=== PATIENT | female | born 1940 | race Caucasian/White ===

== ENCOUNTER → 2016-09-07 | Outpatient (CLI) | payer OTHER ==
[~2016-09-07] MED LIST: AMLO2.5T PO; ASPCH81X PO; BACL10TA PO; BUPR-79 PO; CALC500C70 PO; CYAN100020 PO; FLUT27.5 NAE; FLUT27.53 NAE; GLIP-199 PO; HYDR-4383 PO; HYDR12.55 PO; LEVO200T6 PO; LEVO25TA5 PO; LOSA50TA6 PO; MULT-506 PO; OPTIRAY 320 IV PRN; SYN75 PO; VITAMIN B12 PO; ZNTT/150 PO; ZOLP10TA PO
--- NOTE | 2016-09-07 12:43 | DIAGNOSTIC IMAGING REPORT ---
CT OF THE CHEST WITH IV CONTRAST CLINICAL HISTORY: Multiple pulmonary nodules. COMPARISON STUDY: CT of the abdomen and pelvis February 21, 2016. TECHNIQUE: Following IV administration of 93 mL of Optiray-320, helical axial images of the chest were obtained. Images were viewed in the axial, sagittal and coronal planes. IV contrast was administered without complication. CT DOSE: 880.68 mGy.cm FINDINGS: No enlarged axillary, mediastinal or hilar lymph nodes are present. The size of the heart is normal. There is no pericardial effusion. The central airways are patent. There is no consolidation. Nodules within the lower lungs are unchanged since CT of February 21, 2016 and include a 5 mm left lower lobe nodule shown image 213 of 326. A few additional pulmonary nodules are noted, including a 5 mm left lower lobe nodule shown image 169. The central airways are patent. Postsurgical findings of the stomach are noted. There is fatty infiltration of the liver. IMPRESSION: Several pulmonary nodules measuring up to 5 mm. The lower lung nodules shown on CT of February 21, 2016 are unchanged. These nodules are low suspicion but a follow-up chest CT in one year to ensure stability is recommended. Electronically signed by: Arthur Markham M.D. 09/07/2016 12:41 PM Dictated Date/Time: 09/07/2016 12:34 PM
== END | disposition home or self-care (01) ==
LOC: C.CTS 11:45
PROVIDERS: ATTEND Nurse Practitioner Family
DX: R91.8 Other nonspecific abnormal finding of lung field (principal)

== ENCOUNTER → 2016-12-16 | Outpatient (CLI) | payer OTHER ==
[2016-12-16 13:15] LABS: ISTAT CREATININE 0.7 mg/dl (0.6-1.3); ISTAT HEMOGLOBIN 13.3 g/dl (12.0-16.0); ISTAT IONIZED CALCIUM 1.15 mmol/l (1.12-1.32)
--- NOTE | 2016-12-16 14:45 | DIAGNOSTIC IMAGING REPORT ---
CT ABD/PELVIS IV AND ORAL CONT CLINICAL HISTORY: Lower abdominal pain COMPARISON STUDY: 02/21/2016 TECHNIQUE: Following the IV administration of 117 mL of Optiray-320, CT scan of the abdomen and pelvis was performed from the lung bases to the proximal femurs. Images are reviewed in the axial, sagittal, and coronal planes. IV contrast was administered without complication. CT DOSE: 1558.11 mGy.cm FINDINGS: Lower chest: There is mild subpleural septal thickening. There is a 4 mm solid left lower lobe pulmonary nodule as visualized in image #[id number]. This remains unchanged from the chest CT dated 09/07/2016 Liver: There is mild hepatic steatosis. No focal masses are visualized. Gallbladder: Unremarkable. Spleen: Normal in size and attenuation. Pancreas: Unremarkable. Adrenal glands: Unremarkable. Kidneys: There is symmetric renal cortical enhancement. The kidneys are normal in size without hydronephrosis. Bowel: There are no transition zones indicate bowel obstruction. There is no evidence of acute diverticulitis. There are no findings to indicate acute appendicitis. Peritoneum: There is no intraperitoneal free air or abdominal ascites. There are multiple fat-containing ventral hernias. Vasculature: The abdominal aorta is normal in course and caliber. Adenopathy: None. Pelvic viscera: The uterus is surgically absent. Skeletal structures: No destructive osseous lesions are seen. IMPRESSION: 1. No evidence of bowel obstruction. No evidence of free air 2. No acute inflammatory changes 3. Postoperative changes involving the stomach 4. Stable fat-containing ventral hernias Electronically signed by: Stevie Cruz M.D. 12/16/2016 2:42 PM Dictated Date/Time: 12/16/2016 2:36 PM
== END | disposition home or self-care (01) ==
LOC: C.CTS 10:45
PROVIDERS: ATTEND Nurse Practitioner Family
DX: R10.30 Lower abdominal pain, unspecified (principal)

== ENCOUNTER → 2016-12-23 | Outpatient (CLI) | payer OTHER ==
[~2016-12-23] MED LIST changes: -OPTIRAY 320 IV PRN
--- NOTE | 2016-12-23 10:48 | DIAGNOSTIC IMAGING REPORT ---
RIGHT HIP UNILATERAL 2 VIEWS, LEFT HIP UNILATERAL 2 VIEWS CLINICAL HISTORY: Bilateral groin pain. COMPARISON STUDY: None. FINDINGS: No fracture or dislocation within the right or left hip. The visualized pelvic bones are intact. Cartilage spaces are maintained for age. Linear ossific density adjacent to the superolateral aspect of the left acetabulum may be due to an old injury or chronic change. Soft tissues are unremarkable. IMPRESSION: No acute fracture or dislocation within the right or left hip. Electronically signed by: Chaz Carlson M.D. 12/23/2016 10:46 AM Dictated Date/Time: 12/23/2016 10:45 AM
== END | disposition home or self-care (01) ==
LOC: C.RAD 10:10
PROVIDERS: ATTEND Nurse Practitioner Family
DX: R10.30 Lower abdominal pain, unspecified (principal); M25.551 Pain in right hip

== ENCOUNTER → 2017-01-12 | Outpatient (CLI) | payer OTHER ==
--- NOTE | 2017-01-12 09:17 | DIAGNOSTIC IMAGING REPORT ---
LEFT KNEE 1 OR 2 VIEWS ROUTINE CLINICAL HISTORY: LEFT KNEE PAIN COMPARISON: None. DISCUSSION: There is chondrocalcinosis. There is mild medial joint compartment narrowing. There are medial lateral joint compartment spurs. There are advanced arthritic changes the patellofemoral joint with dorsal patellar spurs. No acute fractures are visualized. IMPRESSION: 1. Chondrocalcinosis and 3 compartment osteoarthritic change 2. No acute fractures. Electronically signed by: Stevie Cruz M.D. 01/12/2017 9:16 AM Dictated Date/Time: 01/12/2017 9:15 AM
== END | disposition home or self-care (01) ==
LOC: C.RAD1850 09:03
PROVIDERS: ATTEND Family Medicine
DX: M25.562 Pain in left knee (principal); M11.262 Other chondrocalcinosis, left knee

== ENCOUNTER 2017-02-12 09:22 | Emergency (ER) | payer OTHER ==
[~2017-02-12] VITALS: Ht 157.5 cm; Wt 102.1 kg
[~2017-02-12 09:22] MED LIST changes: -BACL10TA PO; -CYAN100020 PO; -FLUT27.53 NAE; -SYN75 PO
[2017-02-12 09:30] VITALS: Ht 157.5 cm; Wt 102.1 kg
--- NOTE | 2017-02-12 09:54 | EMERGENCY ROOM VISIT NOTE ---
History First contact with patient: 09:41 Chief Complaint: NECK PAIN Stated Complaint: NECK PAIN RADIATING INTO UPPER BACK, "OUT OF IT" History of Present Illness The patient is a 76 year old female who presents to the Emergency Room with complaints of neck pain for around 5 days. Pain is moving around bilateral back and neck pain. Started in her neck last night although she is very confused about the timing of this. She was seen in [facility] by Sofiya Montiel 2 days previously and was prescribed baclofen but she is unsure whether this has been helping. She took muscle relaxers and pain medication. She is unsure what she was doing when the pain started but reports no trauma. Denies any fevers, chills, weight loss, trauma. The patient presents a very confused history and changes her story multiple times. She is orientated x3. After speaking to the patient I spoke to her daughter who was elsewhere in the ER with her son (as another patient). She reports her mother has altered mental status. She is not usually like this. Confirms story of neck pain for the last 5 days. She thinks her mother may have took too many pain medications yesterday. Review of Systems See HPI for pertinent positives & negatives. A total of 10 systems reviewed and were otherwise negative. Past Medical/Surgical History Medical Problems: (1) Diabetes (2) Hypertension (3) Hypothyroidism Family History Cancer Diabetes mellitus Hypertension Social History Smoking Status: Never Smoker Smokeless Tobacco Use: No Alcohol Use: none Marital Status: Housing Status: lives with family (2 daughters and son) Occupation Status: retired Current/Historical Medications Scheduled Amlodipine (Norvasc), 2.5 MG PO QAM Aspirin (Aspirin Chewable), 81 MG PO QAM Baclofen (Lioresal), 10 MG PO TID Bupropion (Wellbutrin Sr), 150 MG PO BID Calcium/Vitamin D (Os-Brice 500 Plus D), 1 TAB PO QAM Cyanocobalamin (Vitamin B12), 2,500 MCG PO QAM Fluticasone Furoate (Flonase Sensimist), 2 SPRAYS HARPREET QPM Glipizide (Glipizide Er), 1 TAB PO BID Hydrochlorothiazide (Hydrochlorothiazide), 1 TAB PO QAM Levothyroxine Sodium (Levothyroxine Sodium), 1 TAB PO QPM Levothyroxine Sodium (Synthroid), 75 MCG PO QAM Losartan Potassium (Cozaar), 50 MG PO QAM Multivitamin (Multivitamin), 1 TAB PO QAM Ranitidine (Zantac), 150 MG PO QAM Zolpidem Tartrate (Ambien), 10 MG PO HS Scheduled PRN Hydrocodone/Acetaminophen ([place] 10/325 Tab), 1 TAB PO Q6H PRN for Pain Allergies Coded Allergies: No Known Allergies (Verified , `, 02/12/17) Physical Exam Vital Signs Date Time Temp Pulse Resp B/P (MAP) Pulse Ox O2 Delivery O2 Flow Rate FiO2 02/12/17 17:25 37.2 79 18 167/80 96 02/12/17 14:40 70 18 162/80 92 Room Air 02/12/17 12:52 62 171/87 94 Room Air 02/12/17 11:36 73 20 166/77 96 Room Air 02/12/17 09:30 37.2 78 20 154/76 95 Room Air Physical Exam VITAL SIGNS: were reviewed as above GENERAL: moderate distress from her neck pain, constantly moving her head from side to side and holding the back of her head SKIN: Warm dry and pink, no rashes HEAD: Normocephalic and atraumatic EYES: extraocular muscles intact, pupils equal and reactive to light OROPHARYNX: non erythematous, clear and moist NECK: Supple, her pain is reproducible on the right side of her neck around C7-8 LUNGS: clear to auscultation, no accessory muscle use HEART: Regular rate and rhythm, heart sounds 1+2, no murmurs ABDOMEN: Soft and nontender, bowel sounds normal BACK: no CVA tenderness, no central spinal tenderness EXTREMITIES: Warm and well perfused, no calf tenderness/swelling, no pedal edema. NEUROLOGICALLY: Awake alert and oriented but appears confused about recent events. No motor or sensory deficit on upper or lower extremities. Cranial nerves 2-12 intact. Cerebellar testing is within normal limits. There is no nystagmus. There is no facial droop. Speech is clear. Vision is grossly normal. PSYCH: rapid rate, tangential speech but appropriate answers to questions MUSCULOSKELETAL: Good muscle tone. No evidence of trauma Medical Decision & Procedures ER Provider Diagnostic Interpretation: HEAD CT NONCONTRAST CT DOSE: 773.57 mGy.cm HISTORY: Altered mental status. TECHNIQUE: Multiaxial CT images of the head were performed without the use of intravenous contrast. Automated exposure control was utilized for this study. Comparison: None. Findings: The paranasal sinuses and mastoid air cells are clear. The calvarium and skull base are intact. There is no mass, hematoma, midline shift, acute infarct. White matter hypodensity is nonspecific but suggestive of microvascular ischemic change. The ventricles and sulci demonstrate mild age-related involutional changes. Impression: No acute intracranial abnormality. Electronically signed by: Chaz Carlson M.D. 02/12/2017 11:32 AM Dictated Date/Time: 02/12/2017 11:22 AM CHEST ONE VIEW PORTABLE HISTORY: Altered mental status. COMPARISON: Chest 02/21/2016. FINDINGS: The heart remains borderline enlarged. Diffuse interstitial thickening, unchanged. No new focal lung consolidations. No evidence for pulmonary edema. No pleural effusions. No pneumothorax. Surgical clips within the left upper quadrant. IMPRESSION: No significant change compared to the prior study. No acute process. Electronically signed by: Chaz Carlson M.D. 02/12/2017 10:45 AM Dictated Date/Time: 02/12/2017 10:44 AM Laboratory Results 02/12/17 10:35 Red Blood Count 4.12, Mean Corpuscular Volume 89.8, Mean Corpuscular Hemoglobin 29.4, Mean Corpuscular Hemoglobin Concent 32.7, Mean Platelet Volume 9.1, Neutrophils (%) (Auto) 74.2, Lymphocytes (%) (Auto) 18.6, Monocytes (%) (Auto) 6.5, Eosinophils (%) (Auto) 0.1, Basophils (%) (Auto) 0.3, Neutrophils # (Auto) 7.12, Lymphocytes # (Auto) 1.78, Monocytes # (Auto) 0.62, Eosinophils # (Auto) 0.01, Basophils # (Auto) 0.03 02/12/17 10:35 Test 02/12/17 10:35 02/12/17 10:48 02/12/17 15:00 White Blood Count 9.59 K/uL (4.8-10.8) Red Blood Count 4.12 M/uL (4.2-5.4) Hemoglobin 12.1 g/dL (12.0-16.0) Hematocrit 37.0 % (37-47) Mean Corpuscular Volume 89.8 fL (80-100) Mean Corpuscular Hemoglobin 29.4 pg (25-34) Mean Corpuscular Hemoglobin Concent 32.7 g/dl (32-36) Platelet Count 367 K/uL (130-400) Mean Platelet Volume 9.1 fL (7.4-10.4) Neutrophils (%) (Auto) 74.2 % Lymphocytes (%) (Auto) 18.6 % Monocytes (%) (Auto) 6.5 % Eosinophils (%) (Auto) 0.1 % Basophils (%) (Auto) 0.3 % Neutrophils # (Auto) 7.12 K/uL (1.4-6.5) Lymphocytes # (Auto) 1.78 K/uL (1.2-3.4) Monocytes # (Auto) 0.62 K/uL (0.11-0.59) Eosinophils # (Auto) 0.01 K/uL (0-0.5) Basophils # (Auto) 0.03 K/uL (0-0.2) RDW Standard Deviation 41.6 fL (36.4-46.3) RDW Coefficient of Variation 12.7 % (11.5-14.5) Immature Granulocyte % (Auto) 0.3 % Immature Granulocyte # (Auto) 0.03 K/uL (0.00-0.02) Prothrombin Time 10.9 SECONDS (9.0-12.0) Prothromb Time International Ratio 1.0 (0.9-1.1) Activated Partial Thromboplast Time 27.0 SECONDS (21.0-31.0) Partial Thromboplastin Ratio 1.0 Anion Gap 10.0 mmol/L (3-11) Est Creatinine Clear Calc Drug Dose 83.7 ml/min Estimated GFR () 100.9 Estimated GFR (Non- 87.0 BUN/Creatinine Ratio 16.6 (10-20) Calcium Level 8.6 mg/dl (8.5-10.1) Total Bilirubin 0.4 mg/dl (0.2-1) Aspartate Amino Transf (AST/SGOT) 14 U/L (15-37) Alanine Aminotransferase (ALT/SGPT) 26 U/L (12-78) Alkaline Phosphatase 56 U/L (45-117) Troponin I < 0.015 ng/ml (0-0.045) Total Protein 7.6 gm/dl (6.4-8.2) Albumin 3.3 gm/dl (3.4-5.0) Globulin 4.3 gm/dl (2.5-4.0) Albumin/Globulin Ratio 0.8 (0.9-2) Salicylates Level < 1.7 mg/dl (2.8-20) Acetaminophen Level 2 ug/ml (10-30) Ethyl Alcohol mg/dL < 3.0 mg/dl (0-3) Bedside Glucose 138 mg/dl (70-90) Urine Color YELLOW Urine Appearance CLEAR (CLEAR) Urine pH 7.0 (4.5-7.5) Urine Specific [place] 1.014 (1.000-1.030) Urine Protein NEG (NEG) Urine Glucose (UA) NEG (NEG) Urine Ketones NEG (NEG) Urine Occult Blood NEG (NEG) Urine Nitrite NEG (NEG) Urine Bilirubin NEG (NEG) Urine Urobilinogen NEG (NEG) Urine Leukocyte Esterase MODERATE (NEG) Urine WBC (Auto) 10-30 /hpf (0-5) Urine RBC (Auto) 0-4 /hpf (0-4) Urine Hyaline Casts (Auto) 0 /lpf (0-5) Urine Epithelial Cells (Auto) >30 /lpf (0-5) Urine Bacteria (Auto) NEG (NEG) Urine Opiates Screen POS (NEG) Urine Methadone, Qualitative NEG (NEG) Urine Barbiturates NEG (NEG) Urine Phencyclidine (PCP) Level NEG (NEG) Ur Amphetamine/Methamphetamine NEG (NEG) MDMA (Ecstasy) Screen POS (NEG) Urine Benzodiazepines Screen NEG (NEG) Urine Cocaine Metabolite NEG (NEG) Urine Marijuana (THC) NEG (NEG) Medications Administered Medications (Trade) Dose Ordered Sig/Jayden Route Start Time Stop Time Status Last Admin Dose Admin Lorazepam (Ativan Inj) 1 mg NOW STAT IV 02/12/17 11:53 02/12/17 11:54 DC 02/12/17 12:24 1 MG Acetaminophen (Tylenol Tab) 1,000 mg NOW STAT PO 02/12/17 12:08 02/12/17 12:09 DC 02/12/17 12:24 1,000 MG Sodium Chloride 500 ml @ 999 mls/hr Q31M STAT IV 02/12/17 12:34 02/12/17 13:04 DC 02/12/17 12:34 999 MLS/HR ECG Indication: altered mental status Rhythm: normal sinus Findings: no acute ischemic change Change: no significant change (21 February 2016) ED Course 9:44am Complete history and physical performed. 10:00am Separately took history from her daughter who was in a separate room with her son and reports patient is off her baseline mental state. 10:25am Discussed patient with Dr Whatley who separately performed history and physical 11:40am No change in AMS, workup negative. Discussed with Dr Whatley and ativan 1mg IV prescribed 12:20 Patient sleeping but easily rousable. mental state much improved. Neck pain resolved with Ativan, awaiting urine test. NSS bolus 500ml prescribed. 14:30 Reassessed patient and appears much calmer. Feels fine to go home and her daughter will pick her up. Awaiting urine test still however. Patient was reassessed before discharge and now appears more awake and calm Medical Decision Prior records/ancillary studies reviewed and summarized above. Nursing notes reviewed. Additional history obtained from patient and her daughter. The patient's history was concerning for altered mental status. Differential diagnosis: Etiologies such as metabolic, infection, hypoglycemia, electrolyte abnormalities , cardiac sources, intracerebral event, toxicologic, neurologic, as well as others were entertained. Physical examination: As above. Tangential accelerated speech but is orientated with no focal deficit. ER treatment provided: Acetaminophen 650mg PO Ativan 1mg IV 500ml NSS bolus On reassessment the patients neck pain and mental status improved. Diagnostics interpretation by me: ECG: as above, NSR, no ischemic changes The labs revealed no significant pathology Urine toxicology screen was positive for opiates (she takes [place] at home) and MDMA which I suspect is cross reactive with her wellbutrin. She is currently back to her baseline mental state therefore she was deemed safe for discharge. Imaging studies: CT head and CXR showed no acute pathology Given the above diagnostic work-up and treatment, this episode appears to be consistent with muscular muscle spasm with transient alteration of her mental state secondary to the pain. The patient's physical examination and detailed history did not reveal any red flags for back pain such as those listed in the differential diagnosis. Therefore advanced diagnostics and consultations were felt to be unwarranted. By the evaluation outlined above emergent etiologies such as fracture, aortic disease, metastatic disease, infection, renal colic, gastrointestinal, cord compression, cauda equina, as well as others were deemed relatively unlikely. The patient informed about the findings as listed above. All questions were answered and she was pleased with the treatment. Return instructions were outlined and the patient was discharged in stable condition. Referral: The patient was referred back to her primary care physician for follow-up in 3 to 5 days for a recheck of the current condition. Impression Primary Impression: Neck muscle spasm Additional Impression: Transient alteration of awareness Departure Information Dispostion Home / Self-Care Condition FAIR Referrals Ambreen Barrios C.R.N.P. (PCP) Patient Instructions My [facility] Additional Instructions You were evaluated in the ER for neck pain and altered mental consciousness. Routine lab work, EKG, CT head and CXR showed no acute problems. Urine analysis showed leukocyte esterase but this is unlikely to represent a UTI given your mental state has returned to normal. However this sample will be cultured and if positive you will be called. For the neck pain you received a muscle relaxant, you should not drive while taking this medication. You neck pain and confusion improved and is now back to your baseline. We recommend following up with your family physician regarding this in the next 2-3 days. BACK PAIN/INJURY INSTRUCTIONS: DO NOT drive, drink alcohol, operate machinery, or perform dangerous activities today. You were given medications in the ER that can affect your ability to safely function or operate a vehicle. Read all the package inserts or medication information paperwork provided. If you have any questions or concerns call your primary provider, pharmacist or the ER for assistance. Rest and avoid heavy lifting until your symptoms resolve and then gradually return to full activity. A good rule of thumb is if it hurts your back to perform a certain activity, then it should be avoided until you are healthy again. A heating pad, warm compresses, or a hot shower may help with tight muscles and can be done several times a day as needed. Continue current medications. Return to the ER immediately for any numbness, tingling, severe pain, loss of control of your bowels or bladder, inability to walk, or as needed. Follow up with your primary care physician within 3-5 days for a recheck of your current condition Resident Tracking Resident Involvement: Resident Care Provided Care Provided: Adult ED Problem Qualifiers
--- NOTE | 2017-02-12 10:46 | DIAGNOSTIC IMAGING REPORT ---
CHEST ONE VIEW PORTABLE HISTORY: Altered mental status. COMPARISON: Chest 02/21/2016. FINDINGS: The heart remains borderline enlarged. Diffuse interstitial thickening, unchanged. No new focal lung consolidations. No evidence for pulmonary edema. No pleural effusions. No pneumothorax. Surgical clips within the left upper quadrant. IMPRESSION: No significant change compared to the prior study. No acute process. Electronically signed by: Chaz Carlson M.D. 02/12/2017 10:45 AM Dictated Date/Time: 02/12/2017 10:44 AM
[2017-02-12 10:54] LABS: BASO % 0.3 %; BASO ABS # 0.03 K/uL (0-0.2); COMPLETE YES; EOS % 0.1 %; IG% 0.3 %; LYMPH % 18.6 %; LYMPH ABS # 1.78 K/uL (1.2-3.4); MEAN CELL VOLUME 89.8 fL (80-100); MEAN CORPUSCULAR HEMOGLOBIN 29.4 pg (25-34); MEAN CORPUSCULAR HGB CONC 32.7 g/dl (32-36); MEAN PLATELET VOLUME 9.1 fL (7.4-10.4); MONO % 6.5 %; NEUT % 74.2 %; PLATELET COUNT 367 K/uL (130-400); RED BLOOD COUNT 4.12 M/uL (4.2-5.4); WHITE BLOOD COUNT 9.59 K/uL (4.8-10.8)
[2017-02-12 11:00] LABS: PROTHROMBIN TIME (PATIENT) 10.9 SECONDS (9.0-12.0)
[2017-02-12 11:15] LABS: ALT/SGPT 26 U/L (12-78); AST/SGOT 14 U/L (15-37); BLOOD UREA NITROGEN 11 mg/dl (7-18); BUN/CREATININE RATIO 16.6 (10-20); CALCIUM 8.6 mg/dl (8.5-10.1); CARBON DIOXIDE 26 mmol/L (21-32); CHLORIDE 105 mmol/L (98-107); CREATININE 0.66 mg/dl (0.60-1.20); GLUCOSE 142 mg/dl (70-99); POTASSIUM 3.4 mmol/L (3.5-5.1); SODIUM 141 mmol/L (136-145)
[2017-02-12 11:20] LABS: ALB/GLOB RATIO 0.8 (0.9-2); ALKALINE PHOSPHATASE 56 U/L (45-117)
[2017-02-12 11:21] LABS: ACETAMINOPHEN 2 ug/ml (10-30)
--- NOTE | 2017-02-12 11:33 | DIAGNOSTIC IMAGING REPORT ---
HEAD CT NONCONTRAST CT DOSE: 773.57 mGy.cm HISTORY: Altered mental status. TECHNIQUE: Multiaxial CT images of the head were performed without the use of intravenous contrast. Automated exposure control was utilized for this study. Comparison: None. Findings: The paranasal sinuses and mastoid air cells are clear. The calvarium and skull base are intact. There is no mass, hematoma, midline shift, acute infarct. White matter hypodensity is nonspecific but suggestive of microvascular ischemic change. The ventricles and sulci demonstrate mild age-related involutional changes. Impression: No acute intracranial abnormality. Electronically signed by: Chaz Carlson M.D. 02/12/2017 11:32 AM Dictated Date/Time: 02/12/2017 11:22 AM
[2017-02-12] MEDS ORDERED: SYN75 PO (11:35)
[2017-02-12] MEDS ORDERED: FLUT27.53 NAE (11:35)
[2017-02-12] MEDS ORDERED: BACL10TA PO (11:35)
[2017-02-12] MEDS ORDERED: CYAN100020 PO (11:35)
[2017-02-12] MEDS ORDERED: ACETAMINOPHEN IV 1,000 MG in EMPTY BAG 0 ML IV STA (11:40)
[2017-02-12] MEDS ORDERED: LORAZEPAM 2 MG/ML 1 ML VIAL IV STA (11:53)
[2017-02-12] MEDS ORDERED: ACETAMINOPHEN 500 MG TAB PO STA (12:08)
[2017-02-12] MEDS ORDERED: SODIUM CHLORIDE 0.9% 500ML 500 ML IV STA (12:34)
--- NOTE | 2017-02-12 14:56 | EMERGENCY ROOM VISIT NOTE ---
ED Visit Note First contact with patient: 09:41 Resident Physician Supervision Note: I interviewed and examined the patient. Discussed with Dr. Damian and agree with findings and plan as documented in the note. Any exceptions or clarifications are listed here: [None] Patient seemed to be significantly anxious on exam. She is somewhat tender to palpation of the right cervical paraspinous muscles. She is almost manic in nature with pressured speech and continuous motion. She was given 1 mg of IV Ativan with significant relief. The patient slept for some time in the emergency department. At this time her symptoms seem to be related to a muscular spasm. The baclofen may be causing some of her anxiety. The patient will be discharged to follow-up with her PCP. Please see Dr. Damian's notes for further details of the history, physical and visit. Documented By: Shawnee Whatley
[2017-02-12 16:10] LABS: MANUAL MICROSCOPIC REQUIRED? NO; REVIEW REQ? NO; URINE APPEARANCE CLEAR (CLEAR); URINE BILIRUBIN NEG (NEG); URINE COLOR YELLOW; URINE EPITHELIAL CELL AUTO >30 /lpf (0-5); URINE NITRITE NEG (NEG); URINE SPECIFIC GRAVITY 1.014 (1.000-1.030); UROBILINOGEN NEG (NEG); ZZUR CULT IF INDIC CLEAN CATCH YES
[2017-02-12 16:31] LABS: BENZODIAZEPINE, URINE NEG (NEG); COCAINE,URINE NEG (NEG); PHENCYCLIDINE, URINE NEG (NEG)
[2017-02-12 17:25] VITALS: BP 167/80; PULSE 79; TEMP 37.2; O2SAT 96
[2017-02-16 09:55] LABS: COD UR NEGATIVE NG/ML (CUTOFF=50); HYDROCOD UR 998 NG/ML (CUTOFF=50); HYDROMOR UR NEGATIVE NG/ML (CUTOFF=50); MORPHINE UR NEGATIVE NG/ML (CUTOFF=50); NORHYDROCODONE CONF UR 1430 NG/ML (CUTOFF=50); OXYMORPH UR NEGATIVE NG/ML (CUTOFF=50)
== END 2017-02-12 17:27 | disposition home or self-care (01) ==
LOC: C.EDB 09:24 → C.EDA 17:27
DX: M62.838 Other muscle spasm (principal); R40.4 Transient alteration of awareness; E11.9 Type 2 diabetes mellitus without complications; I10 Essential (primary) hypertension; E03.9 Hypothyroidism, unspecified; Z80.9 Family history of malignant neoplasm, unspecified; Z83.3 Family history of diabetes mellitus; Z82.49 Family history of ischemic heart disease and other diseases of the circulatory system; Z79.82 Long term (current) use of aspirin; Z79.899 Other long term (current) drug therapy

== ENCOUNTER → 2017-12-19 | Outpatient (CLI) | payer OTHER ==
[~2017-12-19] MED LIST changes: +BACL10TA PO; +CYAN100020 PO; -FLUT27.5 NAE; +FLUT27.53 NAE; -LEVO25TA5 PO; +RANI150T85 PO; +SYN75 PO; -VITAMIN B12 PO; -ZNTT/150 PO
== END | disposition home or self-care (01) ==
LOC: C.RDSM 13:22
PROVIDERS: ATTEND Orthopaedic Surgery
DX: M25.561 Pain in right knee (principal); M25.562 Pain in left knee

== ENCOUNTER 2025-07-08 06:45 | Observation (INO) ==
--- NOTE | 2025-06-03 09:16 | PAT Medication Instructions ---
Medication Instructions Date of Service June 03, 2025 Home Medications bupropion HCl 200 mg tablet,12 hr sustained-release (Wellbutrin SR) 200 mg PO BID fluticasone propionate 50 mcg/actuation nasal spray,suspension (Flonase Allergy Relief) 2 spray intranasal HS hydrocodone 10 mg-acetaminophen 325 mg tablet 1 tab PO Q6H PRN Pain levothyroxine 200 mcg tablet 200 mcg PO QAM losartan 50 mg tablet 50 mg PO BID multivitamin 1 tab PO QAM zolpidem 10 mg tablet (Ambien) 5 - 10 mg PO HS amlodipine 5 mg tablet 5 mg PO QPM buspirone 10 mg tablet 15 mg PO TID cyanocobalamin (vitamin B-12) 1,000 mcg tablet (Vitamin B-12) 1,000 mcg PO QAM vitamins A,C,Y-niij-gosphx 2,148 mcg-113 mg-45 mg-17.4 mg tablet (PreserVision AREDS) 1 tab PO BID prednisone 10 mg tablet 10 mg PO DIRECTED PRN sjogren's flare calcium 500 mg (as carbonate)-vitamin D3 5 mcg (200 unit) tablet (Os-Brice 500 + D3) 2 tab PO QPM adalimumab 40 mg/0.8 mL subcutaneous pen kit (Humira Pen) 40 mg subcut UD oxybutynin chloride 5 mg tablet,extended release 24 hr 5 mg PO DAILY PRN urinary discomfort Continue as directed prednisone 10 mg tablet 10 mg PO DIRECTED PRN sjogren's flare (if needed) ASK your prescriber and surgeon adalimumab 40 mg/0.8 mL subcutaneous pen kit (Humira Pen) 40 mg subcut UD STOP taking 2 weeks before surgery (or as soon as possible if surgery is within 2 weeks) vitamins A,C,V-nomc-jrldzi 2,148 mcg-113 mg-45 mg-17.4 mg tablet (PreserVision AREDS) 1 tab PO BID DO NOT take the morning of surgery losartan 50 mg tablet 50 mg PO BID multivitamin 1 tab PO QAM cyanocobalamin (vitamin B-12) 1,000 mcg tablet (Vitamin B-12) 1,000 mcg PO QAM oxybutynin chloride 5 mg tablet,extended release 24 hr 5 mg PO DAILY PRN urinary discomfort Take morning of surgery With a small sip of water, OTHERWISE NOTHING TO EAT OR DRINK AFTER MIDNIGHT: bupropion HCl 200 mg tablet,12 hr sustained-release (Wellbutrin SR) 200 mg PO BID hydrocodone 10 mg-acetaminophen 325 mg tablet 1 tab PO Q6H PRN Pain (if needed) levothyroxine 200 mcg tablet 200 mcg PO QAM buspirone 10 mg tablet 15 mg PO TID Take evening before surgery bupropion HCl 200 mg tablet,12 hr sustained-release (Wellbutrin SR) 200 mg PO BID fluticasone propionate 50 mcg/actuation nasal spray,suspension (Flonase Allergy Relief) 2 spray intranasal HS hydrocodone 10 mg-acetaminophen 325 mg tablet 1 tab PO Q6H PRN Pain (if needed) losartan 50 mg tablet 50 mg PO BID zolpidem 10 mg tablet (Ambien) 5 - 10 mg PO HS amlodipine 5 mg tablet 5 mg PO QPM buspirone 10 mg tablet 15 mg PO TID calcium 500 mg (as carbonate)-vitamin D3 5 mcg (200 unit) tablet (Os-Brice 500 + D3) 2 tab PO QPM oxybutynin chloride 5 mg tablet,extended release 24 hr 5 mg PO DAILY PRN urinary discomfort (if needed) Other Notes If you have any questions please call us at [phone] or [phone] or [phone] or [phone]
--- NOTE | 2025-06-05 11:50 | Anesthesiology Consultation ---
Date of Service June 05, 2025 Assessment & Plan (1) Encounter for pre-operative examination: Chart Review Chart Review: Acceptable Risk for Surgery (pending surgeon ordered PCP clearance ) and Patient seen in Pre Admission Testing - Awaiting surgeon ordered PCP clearance 06/16/25 (PSH- seeing Jackelyn SIDHU) - please send optimization form re: recent falls - Check BSG AM DOS - Patient is NOT an ideal OPJ candidate- currently 23 hour obs Per PAT appt on 06/05/25, no recent illness/disease exposures, illness related symptoms, or recent illness/disease positive tests. Will leave to surgeon's discretion if preop Covid testing needed Pulmonary visit 05/22/24= "coming to pulmonary for abnormal CXR... seems to have ILD/pulmonary fibrosis like picture... will order autoimmune work up, high resolution CT scan, full PFT, 2D ECHO to look at right sided pressures... chronic cough... CHRISTIE uses CPAP... obesity...Sjogrens syndrome... follow up in three months..." (patient had labs and high resolution CT scan completed but did not follow up otherwise, last ECHO 2022, breathing stable per patient at PAT, updated CXR showed no changes- discussed with Dr. Rodriguez- patient can proceed as scheduled and will await PCP evaluation preoperatively) History Surgery Operation Date: 07/08/25 10:25 Proposed Procedures p Right Reverse Total Shoulder Arthroplasty - Ventura Vanessa Gomez MD Height/Weight Height: 5 ft 1 in Weight: 75.1 kg Allergies Allergy/AdvReac Type Severity Reaction Status Date / Time No Known Allergies Allergy Verified 06/02/25 07:55 Medications Home Medications Medication Instructions Recorded Confirmed Last Taken bupropion HCl 200 mg tablet,12 hr 200 mg PO BID 11/16/18 06/02/25 02/25/24 sustained-release (Wellbutrin SR) fluticasone propionate 50 2 spray intranasal HS 11/16/18 06/02/25 02/26/24 20:00 mcg/actuation nasal spray,suspension (Flonase Allergy Relief) hydrocodone 10 mg-acetaminophen 1 tab PO Q6H PRN Pain 11/16/18 06/02/25 02/27/24 06:00 325 mg tablet levothyroxine 200 mcg tablet 200 mcg PO QAM 11/16/18 06/02/25 02/27/24 06:00 multivitamin 1 tab PO QAM 11/16/18 06/02/25 02/24/24 zolpidem 10 mg tablet (Ambien) 5 - 10 mg PO HS 11/16/18 06/02/25 02/26/24 20:00 amlodipine 5 mg tablet 5 mg PO QPM 11/01/22 06/02/25 02/26/24 20:00 buspirone 10 mg tablet 15 mg PO TID 11/01/22 06/02/25 02/27/24 06:00 cyanocobalamin (vitamin B-12) 1,000 mcg PO QAM 10/27/23 06/02/25 02/24/24 1,000 mcg tablet (Vitamin B-12) vitamins A,C,C-rios-koaxzo 2,148 1 tab PO BID 10/27/23 06/02/25 02/24/24 mcg-113 mg-45 mg-17.4 mg tablet (PreserVision AREDS) prednisone 10 mg tablet 10 mg PO DIRECTED PRN sjogren's 02/14/24 06/02/25 02/27/24 06:00 flare calcium 500 mg (as 2 tab PO QPM 05/22/24 06/02/25 Unknown carbonate)-vitamin D3 5 mcg (200 unit) tablet (Os-Brice 500 + D3) adalimumab 40 mg/0.8 mL 40 mg subcut UD 01/30/25 06/02/25 Unknown subcutaneous pen kit (Humira Pen) oxybutynin chloride 5 mg 5 mg PO DAILY PRN urinary 01/30/25 06/02/25 Unknown tablet,extended release 24 hr discomfort Past Medical History Medical History (Updated 06/06/25 @ 11:37 by Claire Reaves PA-C) Cardiac murmur since at least 06/02/23 (noted in PCP note on exam) last ECHO 06/13/23 Chronic back pain Chronic venous insufficiency Degenerative disc disease Depression Diabetes mellitus, type 2 hx-lost weight and no meds for 6 years now, A1C "has been good every time checked" Exertional shortness of breath follows with dr gill Gastroparesis - follows with dr. choi GERD (gastroesophageal reflux disease) well controlled and stable Hearing deficit BL hearing aids History of COVID-19 (01/2022) 07/2021 - no symptoms - tested at ER during visit for RA pain - resolved december or january 2022, tested due to exposure (home test) History of gastric ulcer (2022) 2022 Hx of falling - states falls frequently due to balance issues, last fall approx. 05/19/25- bruised back, did not seek medical attention - chronic issues with falls, increased frequency recently- some due to balance issues (feels medication induced), other falls mechanical due to not lifting feet up enough - denies any syncope or dizziness Hypertension Hypothyroid ILD (interstitial lung disease) followed with [facility] Inflammatory arthritis follows with [facility] rheum (no RA per rheum records) Insomnia CHRISTIE (obstructive sleep apnea) cpap, saw pulm in past- dr. gill Osteoarthritis Seasonal allergies Sjogren's disease follows with dr. trin[place]- prednisone prn flare ups Urinary incontinence Exercise / Class Metabolic Activity III < 4 Walking/Shop/Light housework (one flight of stairs- no chest pain, no SOB but goes very slow ) Past Family History Family History Sister Family history of diabetes mellitus Father Lung cancer Mother Lung cancer Past Surgical History Surgical History History of cardiac cath (1998) 1998 - [facility] IN [place] - HTN - NO STENTS/ANGIOPLASTY - DOES NOT FOLLOW W/ CARDIO History of carpal tunnel release BL History of cataract surgery bilateral History of colonoscopy with polypectomy History of esophagogastroduodenoscopy (EGD) History of foot surgery (2021) b/l feet- approx 10 surgeries, most recent hammer toe - 3 years ago= 2021 History of gastric stapling (1981) History of tonsillectomy and adenoidectomy History of tooth extraction History of total knee replacement (2019) LT-2019 RT--2008 History of tubal ligation Hx of LASIK Past Anesthesia History No Hx of Anesthesia Complications and No Family Hx of Anesthesia Complications History of PONV No Hx of PONV and No Hx of Motion Sickness Social History Smoking Status: Former smoker tobacco type: cigarettes Do You Dip or Chew Tobacco: No Smoking End Date: 60 years Hx Alcohol Use: Yes Alcohol type: wine alcohol intake frequency: other Alcohol Intake Frequency Comment: drank in youth Hx Substance Use: No substance use type: does not use Review of Systems Patient denies chest pain, shortness of breath at rest, cough, wheezing, palpitations. No hx of seizures, stroke, [place]. No hx of blood clots or blood transfusions Physical Exam Vital Signs VITALS BP 153/73 P 79 TEMP 97.8 SP02 96% RESP 16 Constitutional no acute distress ENMT Mouth: no TMJ clicking Thyromental Distance: > or= 3.5 Finger Breadths (3.5) Mallampati Class: III Mouth / Teeth: 2 1. Missing Full dentures on top Missing side teeth/molars on bottom and see picture above Neck + limited neck extension Respiratory normal respiratory effort; no respiratory distress Auscultation: lungs clear to auscultation bilaterally and + diminished lung sounds (throughout ); no wheezes Cardiovascular Rate/Rhythm: regular rate and regular rhythm Heart Sounds: + murmur (II-III/ murmur) Vessels: no carotid bruit (no significant bruit - possible radiation of murmur noted ) Musculoskeletal Spine: + pain with cervical ROM Extremities: extremities normal to inspection Psychiatric Orientation: alert Lab Results Anesthesia Preop Results Results Anesthesia Widget: 2 WBC 7.82 K/ul (4.8-10.8) 06/05/25 Hgb 13.8 g/dl (12.0-16.0) 06/05/25 Hct 40.0 % (37.0-47.0) 06/05/25 Plt 266 K/uL (130-400) 06/05/25 Na 143 mmol/L (136-145) 06/05/25 K 3.5 mmol/L (3.5-5.1) 06/05/25 Cl 106 mmol/L (98-107) 06/05/25 CO2 31 mmol/L (21-32) 06/05/25 BUN 11 mg/dl (6-23) 06/05/25 Creat 0.56 mg/dl (0.6-1.2) L 06/05/25 Glucose Level 111 mg/dl (70-99(Fasting)) H 06/05/25 PT 10.4 Seconds (9.0-12.0) 06/05/25 PTT 24 Seconds (21-31) 06/05/25 INR 1.0 (0.9-1.1) 06/05/25 HA1c 6.3 % (4.5-5.6) H 06/05/25 Urine Color Yellow 06/05/25 Urine Appearance Clear (Clear) 06/05/25 Urine pH 7.0 (4.5-7.5) 06/05/25 Urine Specific [place] 1.016 (1.000-1.030) 06/05/25 Urine Protein Negative (Negative) 06/05/25 Urine Glucose (UA) Negative (Negative) 06/05/25 Urine Ketones Negative (Negative) 06/05/25 Urine Blood Negative (Negative) 06/05/25 Urine Nitrite Negative (Negative) 06/05/25 Urine Bilirubin Negative (Negative) 06/05/25 Urine Urobilinogen Negative (Negative) 06/05/25 Urine Leukocyte Esterase 1+ (Negative) H 06/05/25 Urine WBC (Auto) 0-5 /hpf (0-5) 06/05/25 Urine RBC (Auto) 0-2 /hpf (0-2) 06/05/25 Urine Hyaline Casts (Auto) 0-2 /lpf (0-2) 06/05/25 Urine Epithelial Cells (Auto) 0-2 /hpf (0-2) 06/05/25 Urine Bacteria (Auto) None Seen (None Seen) 06/05/25 Blood Type A Positive 06/05/25 Antibody Screen NEGATIVE 06/05/25 Testing Electrocardiogram Date: 06/05/25 Findings: + NSR @ (72bpm) Normal EKG per cardio Chest X-Ray Date: 06/05/25 Findings: + NAD Heart size and pulmonary vasculature are normal. No consolidation or pleural effusion. Stable mild chronic pulmonary interstitial prominence Echocardiogram Date: 06/13/23 EF: 60% LV Function: normal RWMA: + none Other Findings: + LVH (Mild ) and + diastolic dysfunction (Grade I ) Normal RV size and function Mildly dilated left atrium Normal right atrial size Calcified, tricuspid AV without stenosis. Trace to mild AR Mild to moderate MR Pulmonary Function Test Date: 05/22/24 No obstructive lung dysfunction Flow volume loop shows mild expiratory scooping Other Testing High Resolution CT 06/18/24= Basilar and peripheral predominant subpleural groundglass opacities and reticulation with mild traction bronchiectasis and suspected early developing honeycombing within the right middle lobe. The findings represent interstitial lung disease and favor fibrotic type NSIP. Developing UIP pattern could appear similar. No superimposed consolidation to suggest pneumonia. A few subpleural pulmonary nodules measuring up to 5 mm, likely unchanged since CT of September 07, 2016. A chest CT in one year to ensure continued stability is recommended. Brain MRI 06/02/23= No acute intracranial abnormality. Head MRA 06/02/23= No evidence of acute intracranial abnormality. In particular, no occlusion, hemorrhage, or aneurysmal disease is seen.
[2025-07-08] MEDS: VANCOMYCIN HCL 1,250 MG in SODIUM CHLORIDE 0.9% 250 ML IV SCH (07:16)
[2025-07-08] MEDS: LR 15ML/HR IV SCH (07:17)
[2025-07-08] MEDS ORDERED: BUPIVACAINE 0.5 % 5 MG/1 ML PF 10ML VIAL ONE (07:31)
[2025-07-08] MEDS: LR 60ML/HR IV SCH (07:40)
[2025-07-08] MEDS: CeleBREX 200 MG CAP PO SCH ×2 (07:41→22:13)
[2025-07-08] MEDS: ACETAMINOPHEN 500 MG TAB PO SCH ×2 (07:41→17:17)
[2025-07-08] MEDS ORDERED: ONDANSETRON INJ 2 MG/ML 2 ML VIAL ONE (08:08)
[2025-07-08] MEDS ORDERED: PROPOFOL IV EMULSION 10 MG/ML 20 ML VIAL IV ONE (08:08)
[2025-07-08] MEDS ORDERED: LIDOCAINE 2% 2 ML VIAL/AMP(20MG/ML) INFIL ONE (08:08)
[2025-07-08] MEDS ORDERED: ROCURONIUM BROMIDE 10 MG/ML 5 ML VIAL IV ONE (08:08)
[2025-07-08] MEDS ORDERED: MIDAZOLAM HCL 1 MG/ML 2ML VIAL ONE (08:12)
--- NOTE | 2025-07-08 08:50 | History & Physical Bridge Note ---
Date of Service July 08, 2025 History & Physical Bridge Note I have examined the patient, reviewed the History & Physical and in the interval since the performance of the History & Physical I have noted the following changes of clinical significance: no changes noted
[2025-07-08] MEDS: TRANEXAMIC ACID 1,000 MG **IV Pre-op IV SCH (09:11)
[2025-07-08] MEDS ORDERED: ePHEDrine sulfate 50 MG/5 ML SYR ONE (10:00)
[2025-07-08] MEDS ORDERED: PHENYLEPHRINE 100MCG/ML 5ML SYR ONE (10:00)
[2025-07-08] MEDS ORDERED: SUGAMMADEX SODIUM 200 MG/2 ML VIAL IV ONE (10:34)
[2025-07-08] MEDS: LIDOCAINE 1%/EPINEPHRINE 1:100,000 50 ML VIAL ONE (11:50)
[2025-07-08] MEDS: BUPIVACAINE 0.5 % 5 MG/1 ML MPF 30ML VIAL ONE (11:51)
--- NOTE | 2025-07-08 12:39 | Operative Report ---
Post Operative Report Pre & Post Diagnosis Operation Date: 07/08/25 09:00 Pre-Op Diagnosis: Right Shoulder Rotator Cuff Arthropathy Post-Op Diagnosis: Right Shoulder Rotator Cuff Arthropathy I identified the patient and participated in the time-out.: Yes Procedure Operation Date: 07/08/25 09:00 Actual Procedures p Right Reverse Total Shoulder Arthroplasty(Right) - Ventura Gomez MD Surgeon Ventura Gomez MD Electrical Engineering Manager Vanessa Trejo PA-C (No fellow avail) Estimated Blood Loss 50 Findings See Below Shoulder ROM Pre-op: FF 160 deg; Abd 160 deg; ER 50 deg; IR 30 deg Massive retracted rotator cuff with acetabulization of the humeral head. Humeral head had significant loss of articular cartilage of humeral head. LHB was torn and no longer within the groove. A small portion of the subscapularis remained inferiorly with scar tissue/capsule. Shoulder ROM Post-op: FF 165 deg; Abd 165 deg; ER 80 deg; IR 50 deg Fluids 1300 cc Specimens Right Humeral Head Anesthesia Type General Regional Complications none Indications Patient is a 85-year-old female who developed right shoulder rotator cuff arthropathy with pain and decreased mobility. I recommended that she undergo a right shoulder Reverse TSA. The patient understands the risks of the operation including bleeding, infection, re-operation, damage to nerves and arteries, continued shoulder pain, shoulder stiffness, infection, and/or loosening of the components which may require additional surgery. The patient also understands the risks of heart attack, stroke, pulmonary embolus, and . The patient wished to proceed, and the consent form was signed. Description of Procedure IMPLANTS: Arthrex Univers Revers Modular Glenoid System 1) Humeral Stem 7 Univers Reverse Stem, with size 33 +2 Right Offset Suture Cup at 135. 2) Humeral Liner 33, + 3 mm. 3) Glenoid Modular Baseplate 24 mm & Central Screw 10 x 20 mm. 4) Glenosphere 33/24 mm + 4 laterialized. 5) Glenoid Locking screw 5.5 x (28 & 36) mm. Vanessa Trejo PA-C is assisting with positioning, retracting, and closure due to fellow not available. PROCEDURE: The patient was taken to the Operating Room and placed in the beach-chair position after administration of an interscalene block and general anesthesia. 2 g of intravenous Ancef and Vancomycin were administered. The right shoulder was then prepped and draped in the standard sterile fashion. Sequential compression devices were placed in the legs. TXA 1 g was given pre-op and a second dose was given before prepping the humeral shaft. The patient was identified and a multidisciplinary time-out identified the right shoulder as the correct shoulder and operative limb. First, the coracoid, acromion, clavicle, and planned deltopectoral incision were marked and then anesthetized with a 50:50 mixture of 1% lidocaine and 0.5% Marcaine with epinephrine. Sharp dissection was carried down to the deltopectoral interval. The cephalic vein was identified and protected laterally as was the deltoid. The deltopectoral interval was dissected to expose the clavipectoral fascia which was then incised. Blunt dissect was used to separate the deltoid from the humeral head as the rotator cuff torn and retracted. A self-retaining shoulder retractor was placed beneath the conjoined tendon and deltoid muscle, exposing the capsule and the remaining fibers of the attached s ubscapularis tendon. The superior 1cm of the Pec major was released. The rotator interval was split to the base of the coracoid. The remaining subscapularis was released from the lesser tuberosity. Next, the humeral head was dislocated by adducting, extending, and externally rotation and the capsulotomy was carried down all the way around to the posterior aspect of the humeral head, taking care to stay on bone. The humeral intramedullary entry point was entered posterior to the bicipital groove with a 2.4mm guide pin, followed by 6 mm drill, and then IM reamer. The resection guide was attached to the IM reamer and pinned to the humeral head with desired resection of 135. The IM reamer was removed and the humeral head was resected in the standard fashion. The resection protector was placed over the humeral surface. Our attention was drawn to the glenoid. The humerus was retracted and displaced posteriorly. The labrum was circumferentially removed. The glenoid was exposed with 90 deg Néstor retractor superiorly, Ayan retractor anteriorly, and Batman/Tornier retractor posteriorly. After removing the self retaining shoulder retractor using the specific VIP patient specific glenoid aiming guide for a 24 mm baseplate was used to place the 2.8 mm guide wire. The glenoid surface was prepped for the baseplate with the glenoid reamers (peripheral and inferior offset). The modular central screw was prepped with cannulated 10 mm drill, then tapped to a depth of 20 mm. The baseplate with central screw was screwed into place flush to the glenoid. The superior screw hole was drilled first followed by the inferior screw and a locking screws were placed. The Glenosphere was inserted onto the baseplate and locked into place after removing the posterior retractor in the standard fashion. The humerus was dislocated and humeral broaches 6 was placed in the humeral shaft and had excellent fit. The A/P position of the broach was checked. The offset reamer guide was placed. The humeral cup reamer prepped the remainder of the humerus. The 6 [place] stem was impacted into place and a crack at the calcar was noted. The stem was removed. A CerclageTape was placed around the humeral shaft. The longer broaches for the standard stem were sequentially placed from 5-7, with good fixation with the 7 stem. The CerclageTape was tightened in the standard fashion and knots tied. The 7 stem with SutureCup was placed with excellent purchase was achieved. The humeral trial liner +3 mm was placed. The shoulder was reduced with excellent fit and good stability of 1+ translation anteriorly and posteriorly. The shoulder ROM showed improved motion noted above. The definitive humeral liner was then placed. The ROM and stability was unchanged. The pulsatile lavage was used to copiously irrigate the wound throughout the case. A FiberTape and TigerWire were used to secure the remaining Subscapularis to the inferior portion of the SutureCup. The deltopectoral interval was re- approximated with #1-Vicryl, the subcutaneous tissue was closed with 3-0 Vircyl, and the skin was closed with ZipLine and Shield. The wounds were dressed with sterile gauze, and Tegaderm. The patient was then transferred to the PACU in stable condition after application of an abduction sling. POST-OP: The patient will be admitted for observation overnight. Patient will be seen by PT/OT prior to discharge. Pain medicine will be used as needed. Continue abduction sling 4 weeks and regular sling min 2 additional weeks. I attest to the content of the Intraoperative Record and any orders documented therein. Any exceptions are noted below.
--- NOTE | 2025-07-08 12:39 | Post Operative Brief Note ---
Immediate Post Op Note Date of Surgery July 08, 2025 Pre & Post Diagnosis Operation Date: 07/08/25 09:00 Pre-Op Diagnosis: Right Shoulder Rotator Cuff Arthropathy Post-Op Diagnosis: Right Shoulder Rotator Cuff Arthropathy I identified the patient and participated in the time-out.: Yes Procedure Operation Date: 07/08/25 09:00 Actual Procedures p Right Reverse Total Shoulder Arthroplasty(Right) - Ventura Gomez MD Surgeon Ventura Gomez MD Spike Machine Heater Vanessa Trejo PA-C (No fellow avail) Estimated Blood Loss 50 Findings Consistent with Post-Op Diagnosis Fluids 1300 cc Specimens Right Humeral Head Anesthesia Type General Regional Complications none
--- NOTE | 2025-07-08 13:44 | Operative Report ---
Post Operative Report Pre & Post Diagnosis Operation Date: 07/08/25 09:00 Pre-Op Diagnosis: Right Shoulder Rotator Cuff Arthropathy Post-Op Diagnosis: Right Shoulder Rotator Cuff Arthropathy I identified the patient and participated in the time-out.: Yes Procedure Operation Date: 07/08/25 09:00 Actual Procedures p Right Reverse Total Shoulder Arthroplasty(Right) - Ventura Gomez MD Surgeon Ventura Gomez MD Infection Preventionist Vanessa Trejo PA-C (No fellow avail) Estimated Blood Loss 50 Findings Consistent with Post-Op Diagnosis Specimens Routine bone and soft tissue Description of Procedure I was present for the entire case. I assisted with patient positioning, prepping, draping, retraction, suctioning, wound closure, dressing and brace application. Please refer to Dr. Gomez's procedure note for full details. I attest to the content of the Intraoperative Record and any orders documented therein. Any exceptions are noted below.
--- NOTE | 2025-07-08 13:45 | Anesthesiology Progress Note ---
Date of Service July 08, 2025 Anesthesia Post Procedure Vital Signs Vital Signs: Temp Pulse Resp BP Pulse Ox O2 Del Method O2 Flow Rate 07/08/25 13:23 97.5 F L 70 24 111/77 100 Oxymask 8 07/08/25 07:06 97.9 F 80 20 143/69 H 96 Room Air Pain Intensity Right Shoulder: Pain Intensity: 0 Transfer of Care Handoff Completed per policy Notes Mental Status: alert / awake / arousable and participated in evaluation Patient Amnestic to Procedure: Yes Nausea / Vomiting: adequately controlled Pain: adequately controlled Airway Patency, RR, SpO2: stable & adequate BP & HR: stable & adequate Hydration State: stable & adequate Anesthetic Complications: no major complications apparent and Pt Satisfied with anesthetic care
--- NOTE | 2025-07-08 14:32 | XRay Report ---
XR shoulder RT min 2V routine CLINICAL HISTORY: Post shoulder surgery COMPARISON: Right shoulder radiographs March 19, 2025. Right shoulder CT May 17, 2025. FINDINGS: Alignment of the total right shoulder arthroplasty is anatomic. There is no periprosthetic fracture or unexpected radiopaque foreign body. IMPRESSION: Expected findings following total right shoulder arthroplasty. ACT 112: Negative or not required by law. Electronically signed by: Arthur Markham M.D. 07/08/2025 2:30 PM
[2025-07-08] MEDS ORDERED: ONDANSETRON INJ 2 MG/ML 2 ML VIAL IV PRN (15:29)
[2025-07-08] MEDS ORDERED: HYDROmorphone INJ 0.5 MG/0.5 ML SYR IV PRN (15:29)
[2025-07-08] MEDS ORDERED: diphenhydrAMINE Capsule 25 MG CAP PO PRN (15:29)
[2025-07-08] MEDS ORDERED: METOCLOPRAMIDE HCL INJ 5 MG/ML 2 ML VIAL IV PRN (15:29)
[2025-07-08] MEDS ORDERED: OXYBUTYNIN CHLORIDE XL 5 MG TABCR PO PRN (15:29)
[2025-07-08] MEDS ORDERED: MAGNESIUM HYDROXIDE SUSP 30 ML UDC PO PRN (15:29)
[2025-07-08] MEDS ORDERED: NALOXONE HCL 0.4 MG/1 ML VIAL/CARP IV PRN (15:29)
--- NOTE | 2025-07-08 15:49 | Hospitalist Consultation ---
Date of Consultation July 08, 2025 Assessment & Plan (1) Status post reverse total arthroplasty of right shoulder: (2) Hypertension: (3) Diabetes: (4) Hypothyroidism: Plan Javier is a 85F with a PMHx of inflammatory arthritis, Sjogren syndrome, aortic stenosis, HTN, hypothyroid, CHRISTIE on CPAP. Hospital medicine consulted for comorbidities. #Right Shoulder Osteoarthritis - s/p Right Reverse Total Shoulder Arthroplasty with Dr. Gomez on 07/08 pain control / abx / dvt proh / dispo per primary team EBL 50 - monitor AM labs #HTN Hold losartan, pending AM labs Okay to continue amlodipine #Mental Health - continue Wellbutrin and buspar #hypothyroid - continue Synthroid #DM - no home medications, managed with diet #aortic stenosis - recent echo 05/2025 - EF 65%, trace to mild aortic insufficiency, unchanged from prior study Monitor volume status #CHRISTIE - on CPAP #Inflammatory arthritis - follows [facility] Continue OP Humira as prescribed Thank you for allowing us to participate in the care of this patient, please reach out with any questions or concerns. Hospital Medicine will continue to follow. Supervising Physician Co-Signing Physician Notes Attending Attestation & Consult Note: Pt seen/examined, chart reviewed, consult care plan d/w CARMEN Thompson. I agree w/ the vasquez components of her consult documentation. 85yo female with history of HTN, hypothyroidism, diet-controlled T2DM, CHRISTIE on CPAP, inflammatory arthropathy & Sjogren's syndrome. Underwent right reverse total shoulder arthroplasty by Dr Ventura Gomez, [facility]. I saw the patient on the orthopedic floor and she was resting comfortably in bed. Denied any chest pain, dyspnea, nausea, emesis or abd pain. VSS, afebrile, o2 sats wnl gen - lying comfortably in bed, NAD musculo - right shoulder/arm in large sling/brace; right handgrip 5/5 neck - no JVD mouth - MMM heart - RRR, s1 s2, 1/6 systolic murmur RUSB lungs - CTA b/l abd - soft NT ND BS+ ext - no edema of legs, pulses 2+ b/l A/P: 1. right total shoulder replacement by Dr Gomez - defer pain control, disposition, etc to primary ortho team 2. HTN - agree w/ holding losartan until AM labs tomorrow return (to ensure stable creatinine) 3. hypothyroidism - cont synthroid 4. DM - a1c 6.3% in 05/2025 - excellent control; check BSGs while here Thank you for this consult. Will follow with you. Trevon Leal MD History of Present Illness Reason for Consultation: comorbidities Requesting Physician: Dr. Gomez Attending Physician: Ventura Gomez MD History of Present Illness Javier is a 85F with a PMHx of inflammatory arthritis, Sjogren syndrome, aortic stenosis, HTN, hypothryoid, CHRISTIE on CPAP. Seen post operatively in room 305. Reports feeling well, no pain. No supplemental oxygen. Uses CPAP each night. No assistive devices in the home, but cane outside the home. Does not walk in grass because she has fallen too many times. No acute concerns at this time. Allergies Allergy/AdvReac Type Severity Reaction Status Date / Time No Known Allergies Allergy Verified 07/08/25 07:28 Home Medications Medication Instructions Recorded Confirmed Type bupropion HCl 200 mg tablet,12 hr 200 mg PO BID 11/16/18 07/08/25 History sustained-release (Wellbutrin SR) fluticasone propionate 50 2 spray intranasal HS 11/16/18 07/08/25 History mcg/actuation nasal spray,suspension (Flonase Allergy Relief) hydrocodone 10 mg-acetaminophen 1 tab PO Q6H PRN Pain 11/16/18 07/08/25 History 325 mg tablet levothyroxine 200 mcg tablet 200 mcg PO QAM 11/16/18 07/08/25 History multivitamin 1 tab PO QAM 11/16/18 07/08/25 History zolpidem 10 mg tablet (Ambien) 5 - 10 mg PO HS 11/16/18 07/08/25 History amlodipine 5 mg tablet 5 mg PO QAM 11/01/22 07/08/25 History buspirone 10 mg tablet 15 mg PO TID 11/01/22 07/08/25 History cyanocobalamin (vitamin B-12) 1,000 mcg PO QAM 10/27/23 07/08/25 History 1,000 mcg tablet (Vitamin B-12) vitamins A,C,S-eyrw-vnzyzd 2,148 1 tab PO BID 10/27/23 07/08/25 History mcg-113 mg-45 mg-17.4 mg tablet (PreserVision AREDS) prednisone 10 mg tablet 10 mg PO DIRECTED PRN sjogren's 02/14/24 07/08/25 History flare calcium 500 mg (as 2 tab PO QPM 05/22/24 07/08/25 History carbonate)-vitamin D3 5 mcg (200 unit) tablet (Os-Brice 500 + D3) adalimumab 40 mg/0.8 mL 40 mg subcut UD 01/30/25 07/08/25 History subcutaneous pen kit (Humira Pen) oxybutynin chloride 5 mg 5 mg PO DAILY PRN urinary 01/30/25 07/08/25 History tablet,extended release 24 hr discomfort Lactobacil.acidophilus-Bifido.animalis 1 cap PO DAILY 07/08/25 07/08/25 History 5 billion cell sprinkle capsule (Probiotic) acetaminophen 325 mg tablet 325 mg PO Q6H PRN fever or pain 07/09/25 Rx (Tylenol) #30 tabs ascorbic acid (vitamin C) 500 mg 500 mg PO BIDM 14 days #28 tabs 07/09/25 Rx tablet (Vitamin C) aspirin 81 mg tablet,delayed 81 mg PO BID 28 days #56 tabs 07/09/25 Rx release celecoxib 200 mg capsule (Celebrex) 200 mg PO BID 14 days #28 caps 07/09/25 Rx docusate sodium 100 mg capsule 100 mg PO BID 14 days #28 caps 07/09/25 Rx ferrous gluconate 324 mg (38 mg 324 mg PO BIDM 14 days #28 tabs 07/09/25 Rx iron) tablet oxycodone 5 mg tablet 5 - 10 mg (1 - 2 x 5 mg) PO Q4H 07/09/25 Rx PRN pain 0 days #18 tabs Patient History Medical History Inflammatory arthritis follows with [facility] (no RA per rheum records) Hx of falling - states falls frequently due to balance issues, last fall approx. 05/19/25- bruised back, did not seek medical attention - chronic issues with falls, increased frequency recently- some due to balance issues (feels medication induced), other falls mechanical due to not lifting feet up enough - denies any syncope or dizziness ILD (interstitial lung disease) followed with [facility] Exertional shortness of breath follows with dr gill Sjogren's disease follows with dr. trinidad- prednisone prn flare ups Cardiac murmur since at least 06/02/23 (noted in PCP note on exam) last ECHO 06/13/23 CHRISTIE (obstructive sleep apnea) cpap, saw pulm in past- dr. gill Chronic venous insufficiency Gastroparesis - follows with dr. choi History of gastric ulcer (2022) 2022 Urinary incontinence History of COVID-19 (01/2022) 07/2021 - no symptoms - tested at ER during visit for RA pain - resolved december or january 2022, tested due to exposure (home test) Degenerative disc disease Diabetes mellitus, type 2 hx-lost weight and no meds for 6 years now, A1C "has been good every time checked" Hearing deficit BL hearing aids Insomnia GERD (gastroesophageal reflux disease) well controlled and stable Hypothyroid Seasonal allergies Depression Hypertension Chronic back pain Osteoarthritis Surgical History (Updated 07/08/25 @ 18:06 by LILA VillarrealC) History of colonoscopy with polypectomy Hx of LASIK History of esophagogastroduodenoscopy (EGD) History of cataract surgery bilateral History of cardiac cath (1998) 1998 - [facility] IN [place] - HTN - NO STENTS/ANGIOPLASTY - DOES NOT FOLLOW W/ CARDIO History of tooth extraction History of tonsillectomy and adenoidectomy History of gastric stapling (1981) History of carpal tunnel release BL History of tubal ligation History of foot surgery (2021) b/l feet- approx 10 surgeries, most recent hammer toe - 3 years ago= 2021 History of total knee replacement (2019) LT-2019 RT--2008 Family History Sister Family history of diabetes mellitus Father Lung cancer Mother Lung cancer Social History (Updated 05/22/24 @ 10:02 by Tanika Haynes RN) Smoking Status: Former smoker Tobacco Type: Cigarettes Age Started Using Tobacco: 20; Age Quit Using Tobacco: 34; packs per day: 2; Smoking End Date: 60 years; Second Hand Exposure: No; Do You Dip or Chew Tobacco: No; Tobacco Cessation Education Requested by Patient: No Hx Alcohol Use: Yes Alcohol type: wine Hx Substance Use: No Preferred Language: Belarusian Communication Ability: Effective Group Program Manager Required: No Beliefs That Will Affect Care: None Current Living Situation: Family Current Living Situation Comment: LIVES W/ DTR, SON, GRANDCHILDREN Other Information That Helps Us Care for You: No Feels Safe at Home: Yes Safety Concerns: Feels Safe At This Time Assistive Devices: Cane and CPAP Review of Systems Review of Systems: All systems reviewed & are unremarkable except as noted in Subjective Physical Exam Physical Exam: General: NAD, VS as above Resp: normal respiratory effort, lungs clear to auscultation anteriorly CV: RRR, no murmur, Abd: normal bowel sounds, non tender, soft Extremities: right arm in sling, able to wiggle fingers Neuro: A&O x3, Results & Data Results & Data Vital Signs (Past 12 Hours) Vital Signs Temp Pulse Resp BP Pulse Ox O2 Del Method O2 Flow Rate 07/08/25 15:30 88 22 126/70 97 Room Air 07/08/25 15:00 78 16 159/54 H 96 Room Air 07/08/25 14:45 69 17 124/70 96 Room Air 07/08/25 14:30 66 19 120/66 95 Room Air 07/08/25 14:15 66 17 120/54 L 94 Room Air 07/08/25 14:00 97.5 F L 68 16 120/57 L 95 Room Air 07/08/25 13:50 63 17 129/65 94 Room Air 07/08/25 13:40 70 22 128/49 L 96 Room Air 07/08/25 13:30 70 22 119/56 L 96 Oxymask 8 07/08/25 13:23 97.5 F L 70 24 111/77 100 Oxymask 8 07/08/25 07:06 97.9 F 80 20 143/69 H 96 Room Air PG Care Time/CCT Total # of Minutes Spent Total Time Spent with Patient: Total time spent is greater than 50% in coordination of care (as documented) at patient's floor/unit and/or counseling patient: Coding Level of Care Code 79426 IN/OBS CONSULT LVL 3,45M Diagnoses Status post reverse total arthroplasty of right shoulder Z96.611 Hypertension I10 Diabetes E11.9 Hypothyroidism E03.9
[2025-07-08] MEDS: busPIRone 15 MG TAB PO SCH (17:41)
[2025-07-08] MEDS: Scopolamine CHECK PATCH PLACEMENT SCH (18:27)
[2025-07-08] MEDS: BUPIVACAINE LIPOSOME 1.3% 133 MG/10 ML VIAL ONE (18:27)
[2025-07-08] MEDS: ACETAMINOPHEN 500 MG TAB ONE (18:28)
[2025-07-08] MEDS: SODIUM CHLORIDE 0.9% 1,000 ML IV SCH (18:30)
[2025-07-08] MEDS: ROPIV 0.5% 246mg, Ketorolac 30mg, EPINEPHrine 0.5mg in NSS INFIL SCH (18:30)
[2025-07-08] MEDS: ASCORBIC ACID 500 MG TAB PO SCH (22:06)
[2025-07-08] MEDS: SENNA 8.6 MG TAB PO SCH (22:06)
[2025-07-08] MEDS: FERROUS GLUCONATE 324 MG TAB PO SCH (22:11)
[2025-07-08] MEDS: DOCUSATE SODIUM 100 MG CAP PO SCH (22:13)
[2025-07-08] MEDS: FLUTICASONE PROPIONATE NA SPR 16 GM BTL NAE SCH (22:14)
[2025-07-08] MEDS: ZOLPIDEM TARTRATE 5 MG TAB PO SCH (22:14)
[2025-07-09 06:28] LABS: Hematocrit (blood only) 34.5 % (37.0-47.0); Hemoglobin 11.9 g/dL (12.0-16.0); Immature Granulocytes # (auto) 0.02 K/uL (0.01-0.20); Immature Granulocytes % (auto) 0.2 %; Mean Corpuscular Hemoglobin 31.6 pg (25.0-34.0); Mean Corpuscular Volume 91.5 fL (80.0-100.0); Platelet Count 278 K/uL (130-400); RDW Standard Deviation 42.0 fL (36.4-46.3); Red Blood Count 3.77 M/uL (4.20-5.40); White Blood Count 8.05 K/ul (4.8-10.8)
[2025-07-09] MEDS: LEVOTHYROXINE SODIUM 200 MCG TABLET PO SCH (06:43)
[2025-07-09 07:05] LABS: Anion Gap 7.0 (3-11); Blood Urea Nitrogen 11.0 mg/dl (6-23); Calcium 8.7 mg/dl (8.6-10.3); Carbon Dioxide 26.0 mmol/L (21-32); Chloride 106.0 mmol/L (98-107); Creatinine Clr Calc Pharmacy 69.0 ml/min; Glucose 143.0 mg/dl (70-99(Fasting)); Potassium 3.6 mmol/L (3.5-5.1); Sodium 139.0 mmol/L (136-145)
[2025-07-09] MEDS: MULTIVITAMIN TAB PO SCH (08:32)
[2025-07-09] MEDS: CYANOCOBALAMIN (B-12) 500 MCG TABLET PO SCH (08:33)
[2025-07-09] MEDS: ASPIRIN 81 MG ECTAB PO SCH (08:33)
--- NOTE | 2025-07-09 09:15 | Orthopedic Progress Note ---
Date of Service July 09, 2025 Assessment & Plan (1) Status post reverse total arthroplasty of right shoulder: Plan: POD #1-reverse total shoulder arthroplasty with Dr. Gomez May be out of bed, nonweightbearing right upper extremity. Abduction sling on right upper extremity at all times. May loosen the neck strap when sitting as needed for comfort. Ice to right shoulder as needed for pain. Elevate right hand and forearm as needed for swelling. No use of right arm. No pushing, pulling or lifting. PT and OT to start today. AM labs stable. Vital signs stable Pain medication as prescribed. Aspirin 81 mg p.o. twice daily for DVT prophylaxis. FRED stockings bilateral lower extremities x 3 weeks for DVT prophylaxis. Postoperative dressing was left in place today. May change or reinforce as needed. Okay to shower with waterproof dressing in place. Continue home medications. Humira and prednisone currently on hold until incision is healed. Continue home dosage of [place], Tylenol and oxycodone as needed for breakthrough pain. Case management for disposition needs. Patient plans for home health. Plan for discharge home if medically cleared and safe and PT and OT later this morning. Patient understands and agrees with the plan. Will discuss findings with Dr. Gomez. Admission and Anticipated Discharge Date Admission Date: July 08, 2025 Subjective Patient feeling well this morning. Sitting up in bed. Just finished breakfast. States that she feels really well and as long as her pain does not worsen she feels that she is ready to go home. Her daughter plans on getting here around 11. She states that the nerve block wore off early this morning and she is now able to move her thumb. She states that she started getting some pain in her shoulder last evening but nothing through the night that the pain medication has not helped. She denies any nausea or vomiting. Denies any lightheadedness or dizziness. She denies any chest pain or shortness of breath. She has been out of bed with nursing ambulating around the room. Physical Exam Musculoskeletal: Exam focused on her right upper extremity: No distal edema under her hand and fingers. Sensation is normal throughout the hand fingers forearm and shoulder. Postoperative dressings are intact with bloody drainage noted. They were left in place today. Dressing is sealed with Tegaderm. Motor and sensory function is normal in the right upper extremity. Capillary refill is brisk. Distal pulses are 1+. Tolerates active range of motion with flexion extension of her fingers, flexion extension of her wrist in pronation and supination of the forearm. Nontender over the anterior chest wall of the clavicle. No range of motion of her shoulder or elbow were attempted today. Sling straps and positioning were adjusted. Results & Data Vital Signs (Past 12 Hours) Vital Signs Temp Pulse Resp BP Pulse Ox O2 Del Method 07/09/25 07:00 36.9 C 76 16 125/64 97 Room Air 07/09/25 02:00 36.6 C 78 18 156/72 H 99 Room Air 07/08/25 22:15 Room Air 07/08/25 22:00 36.7 C 78 18 164/73 H 97 Room Air Laboratory Results 07/09/25 07/08/25 Range/Units 05:47 14:06 WBC 8.05 (4.8-10.8) K/ul RBC 3.77 L (4.20-5.40) M/uL Hgb 11.9 L (12.0-16.0) g/dL Hct 34.5 L (37.0-47.0) % MCV 91.5 (80.0-100.0) fL MCH 31.6 (25.0-34.0) pg MCHC 34.5 (32.0-36.0) g/dL RDW Std Deviation 42.0 (36.4-46.3) fL RDW Coeff of Idris 12.6 (11.5-14.5) % Plt Count 278 (130-400) K/uL MPV 9.8 (9.4-12.4) fL Immature Gran % (Auto) 0.2 % Neut % (Auto) 62.4 % Lymph % (Auto) 19.1 % Fleming % (Auto) 13.5 % Eos % (Auto) 4.2 % Baso % (Auto) 0.6 % Neut # (Auto) 5.01 (1.40-6.50) K/uL Lymph # (Auto) 1.54 (1.20-3.40) K/uL Fleming # (Auto) 1.09 H (0.11-0.59) K/uL Eos # (Auto) 0.34 (0.00-0.50) K/uL Baso # (Auto) 0.05 (0.00-0.20) K/uL Immature Gran # (Auto) 0.02 (0.01-0.20) K/uL Sodium 139 (136-145) mmol/L Potassium 3.6 (3.5-5.1) mmol/L Chloride 106 (98-107) mmol/L Carbon Dioxide 26 (21-32) mmol/L Anion Gap 7 (3-11) BUN 11 (6-23) mg/dl Creatinine 0.56 L (0.6-1.2) mg/dl Est Cr Clr Drug Dosing 69.0 ml/min eGFR 90.50 BUN/Creatinine Ratio 19.6 (10-20) Glucose 143 H (70-99(Fasting)) mg/dl POC Glucose 158 H (70-99) mg/dl Calcium 8.7 (8.6-10.3) mg/dl Diagnostic Findings Shoulder X-Ray 07/08/25 13:43 XR shoulder RT min 2V routine CLINICAL HISTORY: Post shoulder surgery COMPARISON: Right shoulder radiographs March 19, 2025. Right shoulder CT May 17, 2025. FINDINGS: Alignment of the total right shoulder arthroplasty is anatomic. There is no periprosthetic fracture or unexpected radiopaque foreign body. IMPRESSION: Expected findings following total right shoulder arthroplasty. ACT 112: Negative or not required by law. Electronically signed by: Arthur Markham M.D. 07/08/2025 2:30 PM
--- NOTE | 2025-07-09 09:24 | Discharge Summary ---
Date of Service July 09, 2025 Discharge Data Consultations 07/08/25 15:29 Consult Hospitalist Routine Procedures Performed Operation Date: 07/08/25 09:00 Actual Procedures p Right Reverse Total Shoulder Arthroplasty(Right) - Ventura Gomez MD Hospital Course (1) Status post reverse total arthroplasty of right shoulder: Patient was kept in observation at [facility] after undergoing an elective reverse total arthroplasty of her right shoulder with Dr. Gomez on July 08, 2025. Surgery was performed with general anesthesia and a peripheral nerve block. She was given 2 g of IV Ancef preoperatively and this was continued for 24 hours postoperatively. She was given 1 g of IV vancomycin preoperatively which was continued for 24 hours after surgery. In the recovery room she had x-rays of her right shoulder which showed a stable prosthesis with no evidence of hardware complication. She was allowed out of bed, weight-bear as tolerated on bilateral lower extremities and nonweightbearing on her right upper extremity. Her home medications were continued except for Humira and prednisone which will be held until 2 weeks after surgery or incision is healed. She was given a regular diet. Hospitalist consultation was placed for postoperative medical management. Physical therapy and Occupational Therapy consults were placed. Case management was consulted for disposition needs. Her pain medications consisted of her home [place] 10 over 325 mg, Tylenol, oxycodone for breakthrough pain and IV Dilaudid as needed while in house. She was started on aspirin 81 mg twice daily for DVT prophylaxis. This will be continued for 4 weeks after surgery. She also had knee-high FRED stockings on both lower extremities and AV impulse boots while in house.Vital signs remained stable with slight elevations of blood pressure due to pain. Postoperative day 1 laboratory work was within normal limits and as expected postoperatively. Her postoperative dressing was mildly soiled but was left in place and will be changed in a few days as an outpatient. Sling of her right upper extremity was adjusted and instructions were provided to leave in place at all times. She needs the sling while sleeping, sitting and ambulating. She was instructed to do no use of her right arm except to work on gentle range of motion exercises by the therapist. Postoperative protocol was placed on her chart. All questions were answered. Discharge instructions were reviewed. She was discharged to her home in stable condition on July 09, 2025.
[2025-07-09 11:18] VITALS: BP 130/67; PULSE 95; RESP 14; TEMP 98.2; O2SAT 95
[2025-07-11] MEDS ORDERED: Scopolamine REMOVE TRANSDERM PATCH ONE (08:00)
== END 2025-07-09 12:55 | disposition home health service (06) ==
LOC: ASU 06:45 → PACUINP 06:45 → 3E 18:28